=== PATIENT | male | born 1940 | race Caucasian/White ===

== ENCOUNTER 2017-03-21 18:02 | Emergency (ER) | payer MEDICARE ==
[2017-03-21 15:18] LABS: BASOPHILS 0.5 %; BASOPHILS ABSOLUTE 0.04 10/3/uL (0.0-0.16); EOSINOPHILS 5.4 %; EOSINOPHILS ABSOLUTE 0.41 10/3/uL (0.0-0.53); ER CBC TAT 0 Hrs 05 Mins; HEMATOCRIT 43.6 % (40.0-51.0); HEMOGLOBIN 15.3 g/dL (13.6-17.8); IMMATURE GRANULOCYTES 0.5 %; IMMATURE GRANULOCYTES ABSOLUTE 0.04 10/3/uL (0.0-0.11); LYMPHOCYTES 31.4 %; LYMPHOCYTES ABSOLUTE 2.38 10/3/uL (0.67-4.30); MANUAL DIFF NO %; MEAN CORPUS HGB CONC 35.1 g/dL (32.0-36.0); MEAN CORPUSCULAR VOLUME 96.9 fL (80-100); MEAN PLATELET VOLUME 11.3 fL (9.2-13.0); MONOCYTES 6.5 %; MONOCYTES ABSOLUTE 0.49 10/3/uL (0.21-1.20); NEUTROPHILS 55.7 %; NEUTROPHILS ABSOLUTE 4.21 10/3/uL (2.02-8.40); PLATELET COUNT 123 10/3/uL (150-400); RBC DISTRIBUTION WIDTH 12.7 % (12.0-16.0); WHITE BLOOD CELLS 7.6 10/3/uL (4.5-10.5)
[2017-03-21 15:27] LABS: INTERNATIONAL NORMAL RATI 1.2 UNITS (-); PARTIAL THROMBO TIME 36.1 SEC (22.5-37.2); PROTIME (NOT ORD) 15.1 SEC (12.0-14.5)
[2017-03-21 15:34] LABS: BUN (BLOOD UREA NITROGEN) 11 MG/DL (6-23); CALCIUM, SERUM 9.1 MG/DL (8.5-10.4); CHEST PAIN PROFILE TAT 0 Hrs 21 Mins; CHLORIDE, SERUM 111 MMOL/L (96-112); CO2 (CARBON DIOXIDE) 26 MMOL/L (24-34); CREATININE 1.18 MG/DL (0.70-1.30); GFR AFRICAN AMERICAN 69 ML/MIN (>=60); GFR NON AFRICAN AMERICAN 59 ML/MIN (>=60); GLUCOSE, SERUM 97 MG/DL (60-99); POTASSIUM, SERUM 4.4 MMOL/L (3.5-5.3); SODIUM, SERUM 142 MMOL/L (135-148); TROPONIN I <0.02 NG/ML (<0.05)
[~2017-03-21 18:02] MED LIST: ANOROELLIPTA INH; CALTRAT600 PO; CENTRUM PO; CRESTOR40 MG PO; FISH-EPA1000 MG PO; HALF81 PO; NORCO1 TAB PO; PROAIR HFA INH; VITAMIN D1000 UNI1 PO
== END 2017-03-21 19:14 | disposition home or self-care (01) ==
LOC: ER 18:02
PROVIDERS: Emergency Medicine
DX: R00.1 Bradycardia, unspecified (principal); E78.00 Pure hypercholesterolemia, unspecified; Z87.891 Personal history of nicotine dependence; Z88.0 Allergy status to penicillin; Z79.82 Long term (current) use of aspirin; Z79.899 Other long term (current) drug therapy
CPT/HCPCS: 71020; 80048; 83735; 84484; 85025; 85610; 85730; 93005; 99284